=== PATIENT | male | born 1965 | race African-American/Black ===

== ENCOUNTER 2018-09-02 15:45 | Outpatient (CLI) | payer OTHER ==
--- NOTE | 2018-09-03 09:16 | XRAY Report ---
Reason: PAIN IN RIGHT SHOULDER Procedure Date: 09/02/2018 Accession Number: [id number] / [id number] Procedure: XR - Shoulder 3 View RT CPT Code: FULL RESULT: EXAM: RIGHT SHOULDER RADIOGRAPHY EXAM DATE: 09/02/2018 03:54 PM. CLINICAL HISTORY: PAIN IN RIGHT SHOULDER. COMPARISON: None. TECHNIQUE: 3 views. FINDINGS: Bones: Acromial spur. Joints: The clavicle is craniad to the acromion by 6 mm. Glenohumeral joint intact Soft tissues: The visualized hemithorax is unremarkable. No soft tissue swelling. IMPRESSION: 1. DJD 2. At the AC joint clavicle is craniad to the acromion by 6 mm. If there is clinical concern for AC joint separation weighted views can be obtained RADIA
== END 2018-09-02 15:46 | disposition home or self-care (01) ==
LOC: DI 15:45
PROVIDERS: ATTEND Nurse Practitioner Family
DX: M19.011 Primary osteoarthritis, right shoulder (principal)

== ENCOUNTER 2018-11-04 23:57 | Emergency (ER) | payer OTHER ==
--- NOTE | 2018-11-05 00:06 | ED Physician Documentation ---
History of Present Illness - Stated complaint Stated Complaint: CP/SOA - Chief complaint Chief Complaint: Cardiac - History obtained from History obtained from: Patient - Additonal information Additional information: Patient is a 53-year-old male with history of hypertension presenting with substernal chest pain associated with diaphoresis, nausea, and shortness of breath that began about 2 hours prior to arrival while at rest. Patient denies any new medications, alcohol, diet changes, or other inciting incident. Pain does not radiate. Patient denies vomiting, GERD-like symptoms, abdominal pain, urinary or stool changes, leg swelling or pain, fever, cough, cold symptoms, lightheadedness, or syncope. No other improving or worsening factors noted. Review of Systems Constitutional: denies: Fever Cardiac: reports: Chest pain / pressure Respiratory: reports: Dyspnea. denies: Cough PD PAST MEDICAL HISTORY - Past Medical History Cardiovascular: Hypertension - Past Surgical History Past Surgical History: Yes General: Cholecystectomy Ortho: Shoulder arthroplasty, Arthroscopic surgery - Present Medications Home Medications: Ambulatory Orders Medication Instructions Recorded Confirmed Amlodipine Besylate 5 mg PO DAILY 02/07/13 11/05/18 - Allergies Allergies/Adverse Reactions: Allergies Allergy/AdvReac Type Severity Reaction Status Date / Time No Known Drug Allergies Allergy Verified 11/05/18 00:02 - Social History Does the pt smoke?: No Smoking Status: Never smoker Does the pt drink ETOH?: Yes Does the pt have substance abuse?: No - Immunizations Immunizations are current?: Yes PD ED PE NORMAL - Vitals Vital signs reviewed: Yes (Hypertensive) - General General: Alert and oriented X 3, No acute distress, Well developed/nourished, Other (Anxious) - HEENT HEENT: Atraumatic, Moist mucous membranes - Cardiac Cardiac: RRR, No murmur - Respiratory Respiratory: No respiratory distress, Clear bilaterally - Abdomen Abdomen: Soft, Non tender, Non distended - Derm Derm: Normal color, Warm and dry, No rash - Extremities Extremities: No deformity, No tenderness to palpate, No edema - Neuro Neuro: Alert and oriented X 3, No motor deficit, No sensory deficit - Psych Psych: Normal mood, Normal affect Results - Vitals Vitals: Vital Signs - 24 hr 11/04/18 11/05/18 11/05/18 23:59 00:03 00:10 Temperature 35.8 C L Heart Rate 69 63 Respiratory 18 Rate Blood Pressure 193/110 H 188/104 H O2 Saturation 99 11/05/18 11/05/18 11/05/18 00:40 01:16 01:40 Temperature Heart Rate 61 61 62 Respiratory 13 14 12 Rate Blood Pressure 163/109 H 165/100 H 173/97 H O2 Saturation 96 99 98 11/05/18 11/05/18 11/05/18 01:45 01:50 01:55 Temperature Heart Rate 56 L 58 L 58 L Respiratory 12 11 L 12 Rate Blood Pressure 155/92 H 142/93 H 149/94 H O2 Saturation 99 100 99 11/05/18 11/05/18 11/05/18 02:00 02:05 02:19 Temperature 36.2 C L Heart Rate 59 L 58 L Respiratory 13 14 Rate Blood Pressure 142/87 H 142/89 H O2 Saturation 99 98 11/05/18 02:33 Temperature Heart Rate 53 L Respiratory Rate Blood Pressure 137/83 H O2 Saturation Oxygen O2 Source Room air - EKG (time done) 2357 Rate: Rate (enter#) (63) Rhythm: NSR - Labs Labs: Laboratory Tests 11/05/18 11/05/18 11/05/18 00:10 00:10 00:10 WBC 8.0 RBC 4.75 Hgb 13.7 L Hct 40.1 L MCV 84.4 MCH 28.9 MCHC 34.3 RDW 14.0 Plt Count 219 MPV 8.2 Neut # (Auto) 4.2 Lymph # (Auto) 2.5 Tate # (Auto) 0.7 Eos # (Auto) 0.5 Baso # (Auto) 0.1 Absolute Nucleated RBC 0.00 Nucleated RBC % 0.0 PT 14.1 H INR 1.3 H APTT 30.8 Sodium 138 Potassium 3.3 L Chloride 103 Carbon Dioxide 25 Anion Gap 10.0 BUN 12 Creatinine 1.0 Estimated GFR (MDRD) 94 Glucose 100 Calcium 9.4 Total Bilirubin 0.9 AST 19 ALT 13 Alkaline Phosphatase 94 Troponin I B-Natriuretic Peptide Total Protein 8.1 Albumin 4.8 Globulin 3.3 Albumin/Globulin Ratio 1.5 Lipase 41 11/05/18 11/05/18 11/05/18 00:10 00:10 02:16 WBC RBC Hgb Hct MCV MCH MCHC RDW Plt Count MPV Neut # (Auto) Lymph # (Auto) Tate # (Auto) Eos # (Auto) Baso # (Auto) Absolute Nucleated RBC Nucleated RBC % PT INR APTT Sodium Potassium Chloride Carbon Dioxide Anion Gap BUN Creatinine Estimated GFR (MDRD) Glucose Calcium Total Bilirubin AST ALT Alkaline Phosphatase Troponin I < 0.04 < 0.04 B-Natriuretic Peptide 16 Total Protein Albumin Globulin Albumin/Globulin Ratio Lipase PD MEDICAL DECISION MAKING - ED course Complexity details: reviewed results, re-evaluated patient, considered differential, d/w patient, d/w family ED course: Patient presenting with nonradiating substernal chest discomfort that was associated with diaphoresis, shortness of breath, and nausea. Patient denies any particular inciting incident or recent changes to diet or health. Patient was getting ready for bed at the time of onset. Patient started on aspirin, fentanyl, GI cocktail, and IV fluid. EKG obtained which not find evidence of abnormal beats, abnormal rhythm, or acute ischemia. However, do have concern for possible OK, ACS, and unstable angina and will obtain further work-up. Also considering other etiologies such as PE, pneumonia, GERD, esophageal spasm. Patient does have history of hypertension and remains hypertensive during ED stay with systolics in [id number] and with diastolics above 100. Gave patient some time to relax and decrease blood pressure during ED stay, however, he remained elevated and gave metoprolol IV which declined blood pressure nicely. Do have concern for possible hypertensive urgency. Screening lab work returned relatively unremarkable including troponin x2. CTA chest also obtained to further evaluate for PE. No evidence of PE, but trace pericardial effusion. Do evidence of cardiac tamponade. Also considered pericarditis, but do not find changes indicative of such an EKG or congruent with patient's symptoms. Also have lower suspicion for myocarditis and endocarditis given patient's symptoms and negative cardiac work-up at this time. Upon final reevaluation, patient noted significant improvement of symptoms, most directly after administration of antihypertensive. Had lengthy discussion with patient and significant other about need for close follow-up with his primary care physician later today to discuss further hypertension control with adjustment of medications or dosing, as well as referral to cardiology to obtain additional work-up likely to include stress test, echocardiogram, or more. Also recommended initiating baby aspirin daily in addition to his regular antihypertensive. Discussed strict return precautions as well and both patient and significant other voiced understanding. Patient is comfortable with discharge plan. Departure - Departure Disposition: 01 Home, Self Care Clinical Impression: Chest pain Qualifiers: Chest pain type: unspecified Qualified Code(s): R07.9 - Chest pain, unspecified Condition: Good Instructions: ED Heart Disease Risk Factors, ED Chest Pain Atypical Unkn Cause Follow-Up: your,doctor [Other] - Tomorrow Comments: Please continue home medications as previously instructed. Recommend avoidance of foods that could raise your blood pressure such as foods with high amount of salt. Also recommend starting to take aspirin 81 mg daily. Please contact your primary care physician later today to discuss ED visit, potential need for medication changes for high blood pressure, as well as referral to cardiology for likely evaluation with stress test, echocardiogram, or more. Return to ED immediately if experience return of or worsening of chest pain, difficulty breathing, lightheadedness, passing out, or other concerns.
[2018-11-05] MEDS ORDERED: fentaNYL 100 MCG/2 ML VIAL IVP STA (00:14)
[2018-11-05] MEDS ORDERED: ASPIRIN CHEW 81 MG TABLET PO STA (00:14)
[2018-11-05 00:29] LABS: BASOPHILS # (AUTO) 0.1 10^3/uL (0.0-0.1); BASOPHILS % (AUTO) 0.8 %; EOSINOPHILS # (AUTO) 0.5 10^3/uL (0.0-0.7); EOSINOPHILS % (AUTO) 6.7 %; HGB - HEMOGLOBIN 13.7 g/dL (14.0-18.0); LYMPHOCYTES # (AUTO) 2.5 10^3/uL (1.5-3.5); LYMPHOCYTES % (AUTO) 31.1 %; MEAN CORPUSCULAR HEMOGLOBIN 28.9 pg (27.0-31.0); MEAN CORPUSCULAR HGB CONC 34.3 g/dL (32.0-36.0); MEAN CORPUSCULAR VOLUME 84.4 fL (80.0-94.0); MEAN PLATELET VOLUME 8.2 fL (7.4-11.4); MONOCYTES # (AUTO) 0.7 10^3/uL (0.0-1.0); MONOCYTES % (AUTO) 8.5 %; NEUTROPHILS # (AUTO) 4.2 10^3/uL (1.5-6.6); NEUTROPHILS % (AUTO) 52.9 %; PLT - PLATELET COUNT 219 10^3/uL (130-450); RED BLOOD COUNT 4.75 10^6/uL (4.70-6.10)
[2018-11-05 00:31] LABS: INR 1.3 (0.8-1.2); PT - PROTHROMBIN TIME 14.1 secs (9.9-12.6)
[2018-11-05 00:36] LABS: ALBUMIN 4.8 g/dL (3.2-5.5); ALBUMIN/GLOBULIN RATIO 1.5 (1.0-2.2); BILIRUBIN,TOTAL 0.9 mg/dL (0.2-1.0); CALCIUM 9.4 mg/dL (8.5-10.3); TOTAL PROTEIN 8.1 g/dL (6.7-8.2)
[2018-11-05 00:38] LABS: PARTIAL THROMBOPLASTIN TIME 30.8 secs (24.9-33.3)
[2018-11-05] MEDS ORDERED: IOVERSOL 320 100 ML VIAL IVP ONE ×2 (00:51→01:10)
--- NOTE | 2018-11-05 01:27 | CT Report ---
Reason: Eval for PE Procedure Date: 11/05/2018 Accession Number: [id number] / [id number] Procedure: CT - ANGIO CHEST W/WO CPT Code: FULL RESULT: EXAM: CT ANGIOGRAM CHEST EXAM DATE: 11/05/2018 01:12 AM. CLINICAL HISTORY: Chest pain and shortness of breath. COMPARISON: None. TECHNIQUE: Routine helical imaging was performed through the chest in the pulmonary arterial phase. IV Contrast: [id number] 80ML. Reconstructions: Coronal 3-D MIP reconstructions.Sagittal and coronal. In accordance with CT protocol optimization, one or more of the following dose reduction techniques were utilized for this exam: automated exposure control, adjustment of mA and/or KV based on patient size, or use of iterative reconstructive technique. FINDINGS: Pulmonary Arteries: Diagnostic quality: Adequate through the segmental arteries. No evidence for acute or chronic pulmonary emboli. No evidence of right heart strain. Lungs/Pleura: No consolidation, nodules, or edema. No effusions or pneumothorax. Mediastinum: Heart size upper normal. Trace pericardial effusion. No lymphadenopathy. Thoracic Aorta: Only slightly enhanced. Ascending aorta measures 4.3 cm. Mild atherosclerosis. No obvious acute abnormality. Upper Abdomen: Possible fatty liver. Splenomegaly measuring 14.6 cm. Prior cholecystectomy. Other: None. IMPRESSION: 1. No pulmonary emboli seen. 2. Heart size upper normal. Trace pericardial effusion. RADIA
[2018-11-05] MEDS ORDERED: MAG HYDROX/AL HYDROX/SIMETH 30 ML UDC PO STA (01:31)
[2018-11-05] MEDS ORDERED: METOPROLOL 5 MG/5 ML VIAL IVP STA (01:35)
[2018-11-05 02:34] VITALS: BP 137/83
--- NOTE | 2018-11-05 03:20 | ED Physician Documentation ---
ED Addendum - Addendum Addendum: 11/05/18 03:19 Please add to MDM: Patient's calculated HEART score=3 and RICKIE score=0.
== END 2018-11-05 03:05 | disposition home or self-care (01) ==
LOC: ED 23:57
DX: R07.9 Chest pain, unspecified (principal); I10 Essential (primary) hypertension
CPT/HCPCS: 36415; 71275; 80053; 83690; 83880; 84484; 85025; 85610; 85730; 93005; 96374; 96375; 99283; 99284; A9270; Q9967

== ENCOUNTER 2018-11-19 08:48 | Outpatient (CLI) | payer OTHER ==
[2018-11-19 13:26] LABS: BASOPHILS # (AUTO) 0.1 10^3/uL (0.0-0.1); BASOPHILS % (AUTO) 1.2 %; EOSINOPHILS # (AUTO) 0.4 10^3/uL (0.0-0.7); EOSINOPHILS % (AUTO) 6.5 %; HGB - HEMOGLOBIN 13.5 g/dL (14.0-18.0); LYMPHOCYTES # (AUTO) 1.7 10^3/uL (1.5-3.5); LYMPHOCYTES % (AUTO) 30.8 %; MEAN CORPUSCULAR HEMOGLOBIN 29.2 pg (27.0-31.0); MEAN CORPUSCULAR VOLUME 85.9 fL (80.0-94.0); MEAN PLATELET VOLUME 10.2 fL (7.4-11.4); MONOCYTES # (AUTO) 0.6 10^3/uL (0.0-1.0); NEUTROPHILS # (AUTO) 2.8 10^3/uL (1.5-6.6); NEUTROPHILS % (AUTO) 51.5 %; PLT - PLATELET COUNT 225 10^3/uL (130-450); RED BLOOD COUNT 4.62 10^6/uL (4.70-6.10); RED CELL DISTRIBUTION WIDTH 14.3 % (12.0-15.0); WHITE BLOOD COUNT 5.5 x10^3/uL (4.8-10.8)
[2018-11-19 14:28] LABS: PLATELET ESTIMATE, MANUAL NORMAL (130-450,000) (NORMAL); PLATELET MORPHOLOGY 1+ LARGE PLATELETS (NORMAL); RBC MORPHOLOGY (MULTIPLE) NORMAL APPEARANCE (NORMAL)
[2018-11-19 14:29] LABS: DIFFERENTIAL COMMENT MANUAL=AUTO DIFF
== END 2018-11-19 08:49 | disposition home or self-care (01) ==
LOC: LAB.F 08:48
PROVIDERS: ATTEND Nurse Practitioner Family
DX: D69.1 Qualitative platelet defects (principal)
CPT/HCPCS: 36415; 85025

== ENCOUNTER 2019-01-02 07:33 | Outpatient (CLI) | payer OTHER ==
--- NOTE | 2019-01-02 10:45 | CARDIAC PROCEDURE NOTE ---
DATE OF SERVICE: 01/02/2019 Physician: Kisha Butler MD, [facility] INDICATION: Chest pain. CARDIAC RISK FACTORS: Male gender, hypertension, elevated cholesterol. PROCEDURE: After signing informed consent, the patient underwent a Juan J- protocol treadmill stress test with Echo imaging. Resting heart rate: 69. Peak heart rate: 148 (89% predicted maximum heart rate for age). Resting blood pressure: 140/78. Peak blood pressure: 192/70 (the patient did not take his morning Amlodipine). The patient exercised for 9 minutes and 28 seconds on a Juan J-protocol treadmill stress test. Patient achieved a peak heart rate of 148 (89% PMHR) and 11 METs. The patient had mild shortness of breath at peak but he did develop his typical chest "pressure" in the last 30 sec, approximately. Reason for stopping exercise was achieving target heart rate and developing his typical symptoms. He rated the chest pressure at 4/10 maximum. The chest pressure resolved spontaneously after 6 minutes of recovery. RESTING ELECTROCARDIOGRAM: Normal sinus rhythm, left atrial enlargement, biphasic/flat T waves in V5 and V6. ELECTROCARDIOGRAM AT PEAK: Upsloping ST depressions of 2 mm in leads V4 through V6. SUMMARY 1. Abnormal resting electrocardiogram. 2. Borderline abnormal EKG changes for ischemia, at an adequate level of stress. 3. Good exercise tolerance. 4. Based on EKG criteria alone, he has MODERATE cardiac risk. 5. Echocardiogram images reported separately. cc: MD Maggy Webb ARNP TD: 01/02/2019 10:01 MTDD
== END 2019-01-02 07:34 | disposition home or self-care (01) ==
LOC: DI 07:33
PROVIDERS: ATTEND Nurse Practitioner Family
DX: I20.9 Angina pectoris, unspecified (principal); R94.31 Abnormal electrocardiogram [ECG] [EKG]
CPT/HCPCS: 93016; 93017; 93018; 93350

== ENCOUNTER 2022-02-24 10:48 | Outpatient (CLI) | payer OTHER ==
--- NOTE | 2022-02-24 11:35 | XRAY Report ---
PROCEDURE: Shoulder 3 View RT INDICATIONS: PAIN IN RIGHT SHOULDER JOINT TECHNIQUE: 3 views of the shoulder were acquired. COMPARISON: None. FINDINGS: Bones: No acute fractures or dislocations. Cortical irregularity involving superior and lateral aspe ct of acromion is seen suggestive of old injury in this area.. Mild osteoarthritic changes are noted in acromioclavicular joint. No suspicious bony lesions. Visualized ribs appear intact. Soft tissues: No suspicious soft tissue calcifications. IMPRESSION: Likely old injury involving superior lateral aspect of acromion. Mild acromioclavicular joint osteoarthritis. No gross acute fracture or dislocation. Reviewed by: Chuy Duffy MD on 02/24/2022 11:33 AM PDT Approved by: Chuy Duffy MD on 02/24/2022 11:33 AM PDT Station ID: [id number]
--- NOTE | 2022-02-24 12:37 | XRAY Report ---
PROCEDURE: Knee 3 View BILAT INDICATIONS: PAIN OF BILATERAL KNEE REGIONS TECHNIQUE: 4 views of the right knee and 2 views of the left knee were acquired. COMPARISON: None. FINDINGS: Bones: Postsurgical changes are seen from right knee arthroplasty with a modular prosthesis. Hardwar e components are in expected positions. Mild lucency is seen adjacent to the femoral prosthetic compo nent, which is best seen on lateral views. Mild heterotopic ossification is seen along the medial fem orotibial joint line peripherally. Small suprapatellar enthesophyte. Soft tissues: Small joint effusion. Arterial vascular calcifications are present. IMPRESSION: 1.Postsurgical changes from right total knee arthroplasty. Mild osseous lucency is seen adjacent to t he femoral component that could indicate loosening or infection. 2.Small joint effusion. Reviewed by: Lazaro Marte MD on 02/24/2022 12:36 PM PDT Approved by: Lazaro Marte MD on 02/24/2022 12:36 PM PDT Station ID: [id number]
--- NOTE | 2022-02-24 15:09 | XRAY Report ---
PROCEDURE: Ankle 3 View RT INDICATIONS: PAIN IN RIGHT ANKLE AND JOINTS OF RIGHT FOOT TECHNIQUE: 3 views of the ankle were acquired. COMPARISON: None. FINDINGS: Bones: Pes planus. No acute fractures or dislocations. An enchondroma or bone infarct in distal tibi al atelectasis. Ankle mortise is normally aligned. No suspicious bony lesions. Periosteal reaction and ossification of the distal tibiofibular syndesmosis. Moderate degenerative joint disease of the tibiotalar joint and talonavicular joint. Soft tissues: No tibiotalar joint effusion. Achilles tendon appears normal. Vascular calcification s consistent with atherosclerosis. IMPRESSION: 1. Suspect old injury of the distal tibiofibular syndesmosis. 2. Moderate degenerative joint disease. 3. Pes planus. 4. An enchondroma or bone infarct in distal tibial diaphysis. 5. Severe arthrosclerosis. Reviewed by: Paul Paiz MD on 02/24/2022 3:08 PM PDT Approved by: Paul Paiz MD on 02/24/2022 3:08 PM PDT Station ID: [id number]
== END 2022-02-24 10:49 | disposition home or self-care (01) ==
LOC: DI.S 10:48
PROVIDERS: ATTEND Physician Assistant
DX: M19.071 Primary osteoarthritis, right ankle and foot (principal); M21.41 Flat foot [pes planus] (acquired), right foot; R93.6 Abnormal findings on diagnostic imaging of limbs; Z96.651 Presence of right artificial knee joint; M25.469 Effusion, unspecified knee; M19.011 Primary osteoarthritis, right shoulder

== ENCOUNTER 2023-10-18 08:00 | Outpatient (CLI) | payer OTHER ==
--- NOTE | 2023-10-18 12:20 | MRI Report ---
PROCEDURE: Cervical Spine WO INDICATIONS: CERVICAL RADICULOPATHY TECHNIQUE: Noncontrast sagittal T1 spin echo and T2 fast spin echo, sagittal STIR, foraminal oblique sagittal T2 fast spin echo, and axial gradient echo or T2 fast spin echo through the cervical spine. COMPARISON: None. FINDINGS: Image quality: Excellent. Alignment and Curvature: There is normal bony alignment. Bone Marrow: Marrow demonstrates normal overall signal. Spinal Cord: Visualized spinal cord has normal size and signal. No cerebellar tonsillar herniation. Paraspinous Soft Tissues: No paravertebral masses. Prevertebral soft tissues are normal in thicknes s. C2-C3: No canal stenosis. Right foraminal disc osteophyte complex results in severe right foraminal narrowing. Reference right parasagittal oblique image 5 of series 1010. Also, reference axial image 6 of series 5. C3-C4: Minimal disc bulge. No canal stenosis. AP diameter of the central canal is 10.9 mm. There is a focal right posterior lateral disc protrusion which is subtly visible, seen on sagittal T2 image 8 of series 3 and axial image 14 of series 5, which obliterates the right C4 nerve root in the right l ateral recess and the medial foramen. The left foramen is patent. C4-C5: Disc bulge. No canal stenosis. AP diameter of the central canal is 11.3 mm. Bilateral uncover tebral joint hypertrophy and left facet hypertrophy. Mild bilateral foraminal narrowing.. C5-C6: Chronic disc height loss with diffuse posterior disc plus osteophyte with indentation on the ventral cord. Borderline canal stenosis. AP diameter of the central canal is 10 mm. Bilateral uncover tebral joint hypertrophy with severe bilateral foraminal narrowing. C6-C7: Chronic disc height loss. Posterior disc plus osteophyte, eccentric to the right. No canal st enosis. AP diameter of the central canal is 10.9 mm. There is bilateral uncovertebral joint hypertrop hy and there is small left foraminal disc protrusion. Mild right foraminal narrowing. Moderate to sev ere left foraminal narrowing with a degree of left foraminal C7 nerve root impingement. C7-T1: Posterior disc plus osteophyte. No central canal stenosis. AP diameter of the central canal i s 12.2 mm. Bilateral uncovertebral joint hypertrophy. Severe right foraminal narrowing and moderate t o severe left foraminal narrowing with a degree of bilateral foraminal C8 nerve root impingement. IMPRESSION: 1. There is diffuse underlying cervical spondylitic change with multilevel degenerative disc space lo ss and uncovertebral joint hypertrophy. 2. At C3-C4, there is a very subtly visible right posterior lateral disc protrusion which obliterates the right C4 nerve root in the right lateral recess and medial foramen. 3. No central canal stenosis. 4. Significant multilevel foraminal narrowing as described above. Findings include severe right ammy inal narrowing at C2-C3, severe bilateral foraminal narrowing at C5-C6, moderate to severe left ammy inal narrowing at C6-C7, as well as severe right foraminal narrowing plus moderate to severe left for aminal narrowing at C7-T1. Reviewed by: Josh Braden MD on 10/18/2023 12:19 PM PDT Approved by: Josh Braden MD on 10/18/2023 12:19 PM PDT Station ID: [id number]
--- NOTE | 2023-10-18 13:01 | Ultrasound Report ---
PROCEDURE: Renal (Retroperitoneal) INDICATIONS: RIGHT FLANK PAIN TECHNIQUE: Real-time scanning was performed of the retroperitoneal organs, with image documentation. COMPARISON: None. FINDINGS: Kidneys: Kidneys are normal in size. Right kidney measures 13 cm long; left kidney measures 13.8 cm long. Right renal cortical thickness is 1.3 cm; left renal cortical thickness is 1.3 cm. No solid masses, hydronephrosis, or nephrolithiasis. Bladder: Pre-void bladder volume is 579 mL. Post-void residual is 105 mL. Pre-void images demonstr ate no intraluminal masses or stones. On pre-void images, bilateral ureteral jets are noted with col or Doppler interrogation. (Of note, ureteral jets may not be detectable in up to 25% of cases due to insufficient differences in specific gravity between ureteral and bladder urine). Miscellaneous: No free abdominal fluid. IMPRESSION: No obstruction. Prominent post void residual. Reviewed by: Jillian Mcknight MD on 10/18/2023 1:00 PM PDT Approved by: Jillian Mcknight MD on 10/18/2023 1:00 PM PDT Station ID: [id number]
== END 2023-10-18 08:01 | disposition home or self-care (01) ==
LOC: DI 08:00
PROVIDERS: ATTEND Registered Nurse
DX: M50.11 Cervical disc disorder with radiculopathy, high cervical region (principal); M48.02 Spinal stenosis, cervical region; M47.22 Other spondylosis with radiculopathy, cervical region